=== PATIENT | female | born 2000 | race Asian ===

== ENCOUNTER 2019-05-13 21:47 | Emergency (ER) | payer OTHER ==
[~2019-05-13] VITALS: Ht 165.1 cm; Wt 52.7 kg
[2019-05-13 22:51] LABS: BASO % 0.4 % (0.0-1.0); EOS # 0.1 10^3/uL (0.0-0.5); EOS % 1.5 % (0.0-3.0); HEMATOCRIT 39.2 % (36.0-47.0); HEMOGLOBIN 12.9 g/dl (12.0-15.5); LYMPH # 2.7 10^3/uL (1.5-5.0); LYMPH % 50.6 % (24.0-44.0); MEAN CORPUSCULAR HEMOGLOBIN 29.7 pg (27.0-33.0); MEAN CORPUSCULAR HGB CONC 32.9 g/dl (32.0-36.5); MEAN CORPUSCULAR VOLUME 90.3 fl (80.0-96.0); MONO # 0.4 10^3/uL (0.0-0.8); MONO % 7.2 % (0.0-5.0); NEUTROPHILS # 2.2 10^3/uL (1.5-8.5); NEUTROPHILS % 40.3 % (36.0-66.0); PLATELET COUNT, AUTOMATED 208 10^3/uL (150-450); RED BLOOD COUNT 4.34 10^6/uL (4.00-5.40); WHITE BLOOD COUNT 5.4 10^3/uL (4.0-10.0)
[2019-05-14] MEDS ORDERED: BACT800T5 PO (00:02)
[2019-05-14] MEDS ORDERED: IBUP-1022 PO (00:02)
[2019-05-14 00:12] VITALS: BP 115/65
[2019-05-14] MEDS ORDERED: BACTRIM 160MG/800MG DS TAB PO ONE (00:15)
--- NOTE | 2019-05-14 00:38 | REPVR ---
PROCEDURE INFORMATION: Exam: US Pelvis Complete, Transabdominal Exam date and time: 05/13/2019 11:44 PM Clinical history: 18 years old, female; Pelvic pain; Additional Info: llq pain TECHNIQUE: Imaging protocol: Real-time transabdominal pelvic ultrasound with image documentation. Complete exam. COMPARISON: No relevant prior studies available. FINDINGS: Uterus/cervix: Uterus measures 8.1 x 3.8 x 4.4 cm. Endometrial stripe measures 10.8 mm in thickness. No uterine masses. Right adnexa: Right ovary 2.8 x 1.4 x 1.6 cm. Normal vascular flow the right ovary. No masses. Left adnexa: Left ovary measures 3.8 x 1.9 x 1.8 cm. Partially collapsed cyst in the left ovary measuring 1.3 x 0.7 x 1.1 cm. Normal vascular flow the left ovary. Free fluid: Trace fluid in the cul-de-sac with internal echoes. Bladder: Bladder is empty. IMPRESSION: 1. Unremarkable uterus and right ovary. 2. Partially collapsed cyst in the left ovary. No followup is necessary. Electronically signed by: Carlo Mckenna On 05/14/2019 00:37:56 AM
--- NOTE | 2019-05-14 01:30 | REP ---
Clinical: Left lower quadrant pain. Technique: Single supine view of the abdomen and pelvis. Findings: Bowel gas pattern is nonspecific and without obstruction or perforation. No organomegaly. No abnormal calcifications. Skeletal structures are intact. Impression: Normal abdominal radiograph. Electronically Signed by Alex Matthew MD 05/14/2019 01:22 A
== END 2019-05-14 00:18 | disposition home or self-care (01) ==
LOC: M ED 21:47
DX: N30.90 Cystitis, unspecified without hematuria (principal); R10.2 Pelvic and perineal pain; F17.200 Nicotine dependence, unspecified, uncomplicated

== ENCOUNTER 2019-06-27 15:17 | Emergency (ER) | payer OTHER ==
[~2019-06-27] VITALS: Ht 165.1 cm; Wt 50.0 kg
[~2019-06-27 15:17] MED LIST: BACT800T5 PO; IBUP-1022 PO
[2019-06-27] MEDS ORDERED: PREVTAB2 PO (15:22)
[2019-06-27] MEDS ORDERED: ABIL1TAB11 PO (15:22)
[2019-06-27 16:08] LABS: BASO % 0.4 % (0.0-1.0); EOS # 0.1 10^3/uL (0.0-0.5); EOS % 1.3 % (0.0-3.0); HEMATOCRIT 40.9 % (36.0-47.0); HEMOGLOBIN 13.3 g/dl (12.0-15.5); LYMPH # 2.2 10^3/uL (1.5-5.0); LYMPH % 45.9 % (24.0-44.0); MEAN CORPUSCULAR HEMOGLOBIN 29.4 pg (27.0-33.0); MEAN CORPUSCULAR HGB CONC 32.5 g/dl (32.0-36.5); MEAN CORPUSCULAR VOLUME 90.3 fl (80.0-96.0); MONO # 0.3 10^3/uL (0.0-0.8); MONO % 6.2 % (0.0-5.0); NEUTROPHILS # 2.2 10^3/uL (1.5-8.5); NEUTROPHILS % 46.2 % (36.0-66.0); PLATELET COUNT, AUTOMATED 232 10^3/uL (150-450); RED BLOOD COUNT 4.53 10^6/uL (4.00-5.40); WHITE BLOOD COUNT 4.7 10^3/uL (4.0-10.0)
[2019-06-27 17:02] LABS: ALBUMIN 4.1 GM/DL (3.2-5.2); ALT/SGPT 11 U/L (12-78); BILIRUBIN,DIRECT 0.1 MG/DL (0.0-0.2); BILIRUBIN,TOTAL 0.4 MG/DL (0.2-1.0); BLOOD UREA NITROGEN 13 MG/DL (7-18); CALCIUM LEVEL 8.8 MG/DL (8.5-10.1); CARBON DIOXIDE LEVEL 26 MEQ/L (21-32); CHLORIDE LEVEL 106 MEQ/L (98-107); CREATININE FOR GFR 0.69 MG/DL (0.55-1.30); GLUCOSE, FASTING 80 MG/DL (70-100); HCG, SERUM QUANTITATIVE < 1.0 MIU/ML; LIPASE 124 U/L (73-393); POTASSIUM SERUM 4.1 MEQ/L (3.5-5.1); SODIUM LEVEL 140 MEQ/L (136-145); TOTAL PROTEIN 7.2 GM/DL (6.4-8.2)
[2019-06-27] MEDS ORDERED: ONDANSETRON 4 MG ORAL DISINTEGRATING TAB (Q0162 PER 1MG) PO ONE (18:00)
[2019-06-27] MEDS ORDERED: KETOROLAC TROMETHAMINE 10 MG TAB PO ONE (18:00)
--- NOTE | 2019-06-27 19:01 | REPVR ---
PROCEDURE INFORMATION: Exam: US Pelvis Complete, Transabdominal and US Pelvis, Transvaginal Exam date and time: 06/27/2019 6:21 PM Clinical history: 18 years old, female; Pelvic pain; Additional info: Pelvic pain, bilat, L flank pain TECHNIQUE: Imaging protocol: Real-time transabdominal and transvaginal pelvic ultrasound (complete) with image documentation. Transvaginal imaging was used for better evaluation of the endometrium and adnexa. COMPARISON: US PELVIC NON-OB COMPLETE 05/13/2019 11:26 PM FINDINGS: Uterus/cervix: The uterus is retroverted, measuring approximately 6.9 x 4.3 x 4.4 cm. The endometrial stripe measures approximately 11 mm. Right adnexa: The right ovary measures 4.4 x 1.2 x 1.1 cm. Normal Doppler flow is present. An 8 mm follicle is noted. Left adnexa: The left ovary measures 3.0 x 1.2 x 1.2 cm. A 9 mm follicle is noted. Normal Doppler flow is present. Free fluid: A trace amount of free fluid is noted in the pelvic cul-de-sac. Bladder: Normal. IMPRESSION: No new or acute abnormality. Electronically signed by: Gus Johnson On 06/27/2019 19:00:50 PM
[2019-06-27 19:37] VITALS: BP 121/70
[2019-06-27] MEDS ORDERED: ONDA4TAB6 PO (19:58)
== END 2019-06-27 20:10 | disposition home or self-care (01) ==
LOC: M ED 15:17
DX: R10.32 Left lower quadrant pain (principal); R10.2 Pelvic and perineal pain; R11.0 Nausea; Z79.899 Other long term (current) drug therapy; Z79.3 Long term (current) use of hormonal contraceptives
CPT/HCPCS: 36415; 76830; 76856; 80048; 80076; 81001; 81002; 81025; 83690; 84702; 85025; 93976; 99283; G0463; Q0162

== ENCOUNTER → 2019-10-16 | Outpatient (REF) | payer OTHER ==
[~2019-10-16] MED LIST changes: +ABIL1TAB11 PO; +CLOB5CR TOP; +ONDA4TAB6 PO; +PHEN-500 PO; +PHEN-593; +PREVTAB2 PO; +PROAAER10 INH; +SULF1TAB93; +VENL37.598 PO
[2019-10-17 05:07] LABS: CHLAMYDIA DNA AMPLIFICATION NEGATIVE (NEGATIVE); GC DNA AMPLIFICATION NEGATIVE (NEGATIVE)
== END ==
LOC: M SFHCLERA 14:54
PROVIDERS: ATTEND Nurse Practitioner Family
DX: R30.0 Dysuria (principal)
CPT/HCPCS: 81002; 87088; 87186; 87661; G0463

== ENCOUNTER 2019-10-17 18:27 | Inpatient (IN) | payer OTHER ==
[~2019-10-17] VITALS: Ht 165.1 cm; Wt 48.0 kg
[~2019-10-17 18:27] MED LIST changes: -CLOB5CR TOP; -PHEN-500 PO; -PHEN-593; -PROAAER10 INH; -SULF1TAB93; -VENL37.598 PO
[2019-10-17] MEDS ORDERED: PHEN-593 (18:47)
[2019-10-17] MEDS ORDERED: SULF1TAB93 (18:47)
[2019-10-17 19:40] LABS: HEMOGLOBIN 13.9 g/dl (12.0-15.5); MEAN CORPUSCULAR HEMOGLOBIN 29.7 pg (27.0-33.0); MEAN CORPUSCULAR HGB CONC 33.9 g/dl (32.0-36.5); MEAN CORPUSCULAR VOLUME 87.6 fl (80.0-96.0); PLATELET COUNT, AUTOMATED 212 10^3/uL (150-450); RED BLOOD COUNT 4.68 10^6/uL (4.00-5.40); WHITE BLOOD COUNT 8.5 10^3/uL (4.0-10.0)
[2019-10-17 20:01] LABS: HCG, SERUM QUALITATIVE NEGATIVE (NEGATIVE)
[2019-10-17 20:09] LABS: ACETAMINOPHEN LEVEL < 2.0 UG/ML (10.0-30.0); ALBUMIN 4.4 GM/DL (3.2-5.2); ALT/SGPT 11 U/L (12-78); BILIRUBIN,DIRECT 0.2 MG/DL (0.0-0.2); BILIRUBIN,TOTAL 0.6 MG/DL (0.2-1.0); BLOOD UREA NITROGEN 12 MG/DL (7-18); CALCIUM LEVEL 9.3 MG/DL (8.5-10.1); CARBON DIOXIDE LEVEL 23 MEQ/L (21-32); CHLORIDE LEVEL 107 MEQ/L (98-107); CREATININE FOR GFR 0.85 MG/DL (0.55-1.30); ETHYL ALCOHOL (ETHANOL) < 0.003 % (0.000-0.010); GLUCOSE, FASTING 101 MG/DL (70-100); POTASSIUM SERUM 3.8 MEQ/L (3.5-5.1); SALICYLATE LEVEL < 1.7 MG/DL (5.0-30.0); SODIUM LEVEL 137 MEQ/L (136-145); TOTAL PROTEIN 7.6 GM/DL (6.4-8.2)
[2019-10-17 20:13] LABS: AMPHETAMINES LEVEL URINE NEGATIVE (NEGATIVE); BARBITURATES URINE NEGATIVE (NEGATIVE); BENZODIAZEPINES URINE NEGATIVE (NEGATIVE); CANNABINOIDS URINE NEGATIVE (NEGATIVE); COCAINE METABOLITE URINE NEGATIVE (NEGATIVE); METHADONE URINE NEGATIVE (NEGATIVE); OPIATES URINE NEGATIVE (NEGATIVE); PHENCYCLIDINE URINE NEGATIVE (NEGATIVE)
[2019-10-17] MEDS ORDERED: MOM 30ML SUSPENSION UDC PO PRN (21:00)
[2019-10-17] MEDS ORDERED: ACETAMINOPHEN TAB 650MG DOSE (2X325MG) PO PRN (21:00)
[2019-10-17] MEDS ORDERED: traZODone 50 MG TAB PO PRN (21:00)
[2019-10-17] MEDS ORDERED: MAALOX 30 ML SUSP *UDC PO PRN (21:00)
[2019-10-17] MEDS ORDERED: BACT800T5 PO (21:24)
[2019-10-17] MEDS ORDERED: PHEN-500 PO (21:24)
[2019-10-17] MEDS ORDERED: CLOB5CR TOP (21:25)
[2019-10-17] MEDS ORDERED: PROAAER10 INH (21:25)
[2019-10-17] MEDS ORDERED: ENTER DRUG NAME HERE (PATIENT'S OWN MED) PO SCH (21:30)
[2019-10-17] MEDS: BACTRIM 160MG/800MG DS TAB PO SCH (22:07)
[2019-10-17 22:30] VITALS: BP 140/80
[2019-10-18 06:27] VITALS: BP 104/52
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
[2019-10-18] MEDS ORDERED: PHENAZOPYRIDINE 100 MG TAB PO SCH (09:00)
[2019-10-18] MEDS ORDERED: ALBUTEROL 90 MCG/ACT 8GM HFA INHALER INH PRN (09:00)
[2019-10-18] MEDS: PHENAZOPYRIDINE 100 MG TAB PO SCH ×2 (09:00→20:41)
[2019-10-18] MEDS ORDERED: BACTRIM 160MG/800MG DS TAB PO SCH (09:00)
[2019-10-18] MEDS ORDERED: VENLAFAXINE **XR** 37.5 MG CAPSULE PO ONE (09:15)
[2019-10-18] MEDS: CLOBETASOL PROPIONATE EMOLLIENT 0.05% CR 60 GM TOP SCH ×2 (11:54→20:42)
[2019-10-18] MEDS: BACTRIM 160MG/800MG DS TAB PO SCH ×2 (11:55→20:41)
[2019-10-18] MEDS ORDERED: ONDANSETRON 4 MG ORAL DISINTEGRATING TAB (Q0162 PER 1MG) PO PRN (13:45)
--- NOTE | 2019-10-18 17:09 | HPEPDOC ---
[facility] Medical History & Physical Date of Admission Oct 18, 2019 Date of Service: Oct 18, 2019 Attending Physician: EVE STARR MD History and Physical CHIEF COMPLAINT: Admitted to inpatient mental health unit for suicide attempt HISTORY OF PRESENT ILLNESS: 19-year-old female with past medical history of bipolar depression is admitted to inpatient mental health unit after suicide attempt. Patient felt worsening depression because her left for 4 days due to work, she overdosed on her antidepressants. Patient has overdosed on medication in the past in a suicide attempt. She reports that she does not have the intention to kill herself. It was just a reaction of her depression. Patient currently feels well, has no medical complaints at this time. She denies any shortness of breath, chest pain, nausea, vomiting, abdominal pain or diarrhea. Her medical history is otherwise significant for asthma, takes as needed inhalers. 10 point review of system is negative except for above PAST MEDICAL HISTORY: 1. Bipolar Depression. 2. Asthma. PAST SURGICAL HISTORY: 1. None. SOCIAL HISTORY: Never smoker. Social use. Denies drug use FAMILY HISTORY: No family history of cancer, heart disease ALLERGIES: Please see below. HOME MEDICATIONS: Please see below. PHYSICAL EXAMINATION: VITAL SIGNS: Please see below. GENERAL: No distress HEENT: Normocephalic, atraumatic, moist mucous membranes NECK: Supple CARDIOVASCULAR EXAMINATION: S1, S2, no murmurs RESPIRATORY EXAMINATION: Clear to auscultation, no wheezing ABDOMINAL EXAMINATION: Soft, nontender, nondistended, positive bowel sounds EXTREMITIES: Range of motion intact SKIN: No rash NEUROLOGICAL EXAMINATION: Alert and oriented 3, no focal deficits PSYCHIATRIC EXAMINATION: Calm and cooperative LABORATORY DATA: See below. MICROBIOLOGY: Please see below. ASSESSMENT: 19-year-old female with past medical history of bipolar depression and asthma admitted to inpatient mental health unit after suicide attempt. . PLAN: 1. Suicide attempt. Management as per primary team 2. Asthma. Continue as needed albuterol Patient has no other active medical problems at this time, please reconsult as needed. Vital Signs Vital Signs Date Time Temp Pulse Resp B/P (MAP) Pulse Ox O2 Delivery O2 Flow Rate FiO2 10/18/19 06:27 99.0 77 16 104/52 (69) 10/17/19 22:30 100 Room Air Laboratory Data Labs 24H Laboratory Tests 2 10/17/19 18:55: Nucleated Red Blood Cells % (auto) 0.0, Anion Gap 7L, Calcium Level 9.3, Total B ilirubin 0.6, Direct Bilirubin 0.2, Aspartate Amino Transf (AST/SGOT) 12, Alanine Aminotransferase (ALT/SGPT) 11L, Alkaline Phosphatase 65, Total Protein 7.6, Albumin 4.4, Albumin/Globulin Ratio 1.38, Thyroid Stimulating Hormone (TSH) 2.040, Human Chorionic Gonadotropin, Qual NEGATIVE, Salicylates Level < 1.7L, Urine Opiates Screen NEGATIVE, Urine Methadone Screen NEGATIVE, Acetaminophen Level < 2.0L, Urine Barbiturates Screen NEGATIVE, Urine Phencyclidine Screen NEGATIVE, Urine Amphetamines Screen NEGATIVE, Urine Benzodiazepines Screen NEGATIVE, Urine Cocaine Metabolite Screen NEGATIVE, Urine Cannabinoids Screen NEGATIVE, Ethyl Alcohol Level < 0.003 CBC/BMP Laboratory Tests 10/17/19 18:55 Home Medications Scheduled Aripiprazole (Abilify) 5 Mg Tablet, 5 MG PO DAILY Clobetasol Propionate (Clobetasol Emollient 0.05% Crm) 60 Gm Cream..g., 1 DOSE TOP BID USES ON LOWER LEGS Phenazopyridine HCl (Phenazopyridine HCl) 100 Mg Tablet, 100 MG PO BID HAS NOT STARTED YET Sulfamethoxazole/Trimethoprim (Bactrim Ds Tablet) 1 Each Tablet, 1 TAB PO BID HAS ONLY TAKEN ONE DOSE Scheduled PRN Albuterol Sulfate (Proair Hfa) 8.5 Gm Hfa.aer.ad, 2 PUFF INH QID PRN for SHORTNESS OF BREATH Allergies Coded Allergies: No Known Allergies (Unverified , 05/13/19) A-FIB/CHADSVASC A-FIB History Current/History of A-Fib/PAF?: No EVE STARR MD Oct 18, 2019 17:08
[2019-10-18 17:48] VITALS: BP 112/69
[2019-10-19 06:17] VITALS: BP 121/61
[2019-10-19] MEDS ORDERED: VENLAFAXINE **XR** 37.5 MG CAPSULE PO SCH (09:00)
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
[2019-10-19] MEDS ORDERED: VENL37.598 PO (09:20)
[2019-10-19] MEDS: CLOBETASOL PROPIONATE EMOLLIENT 0.05% CR 60 GM TOP SCH (10:17)
[2019-10-19] MEDS: BACTRIM 160MG/800MG DS TAB PO SCH (10:18)
[2019-10-19] MEDS: PHENAZOPYRIDINE 100 MG TAB PO SCH (10:18)
== END 2019-10-19 12:50 | disposition home or self-care (01) | DRG 882 ==
LOC: M ED 18:27 → M ED INP 20:46 → M PSY 22:20
PROVIDERS: ADMIT Psychiatry & Neurology Addiction Medicine; ATTEND Psychiatry & Neurology Addiction Medicine
DX: F43.8 Other reactions to severe stress (principal); F43.20 Adjustment disorder, unspecified; F43.10 Post-traumatic stress disorder, unspecified; F60.3 Borderline personality disorder; Z62.811 Personal history of psychological abuse in childhood; Z79.899 Other long term (current) drug therapy

== ENCOUNTER → 2019-11-07 | Outpatient (REF) | payer OTHER ==
[~2019-11-07] MED LIST changes: +CLOB5CR TOP; +PHEN-500 PO; +PHEN-593; +PROAAER10 INH; +SULF1TAB93; +VENL37.598 PO
[2019-11-07 22:25] LABS: CHLAMYDIA DNA AMPLIFICATION NEGATIVE (NEGATIVE); GC DNA AMPLIFICATION NEGATIVE (NEGATIVE)
== END ==
LOC: M SFHCLERA 19:10
PROVIDERS: ATTEND Nurse Practitioner Family
DX: R30.0 Dysuria (principal)
CPT/HCPCS: 81002; 81025; 87086; 87661; G0463

== ENCOUNTER 2020-11-25 18:30 | Emergency (ER) | payer OTHER ==
[~2020-11-25] VITALS: Ht 165.1 cm; Wt 52.3 kg
[~2020-11-25 18:30] MED LIST changes: -PHEN-593; +PHEN1TAB73
[2020-11-25 19:50] LABS: HEMATOCRIT 42.3 % (36.0-47.0); HEMOGLOBIN 13.5 g/dl (12.0-15.5); MEAN CORPUSCULAR HEMOGLOBIN 28.8 pg (27.0-33.0); MEAN CORPUSCULAR HGB CONC 31.9 g/dl (32.0-36.5); MEAN CORPUSCULAR VOLUME 90.2 fl (80.0-96.0); PLATELET COUNT, AUTOMATED 239 10^3/uL (150-450); RED BLOOD COUNT 4.69 10^6/uL (4.00-5.40); WHITE BLOOD COUNT 6.5 10^3/uL (4.0-10.0)
[2020-11-25 20:15] LABS: HCG, SERUM QUALITATIVE NEGATIVE (NEGATIVE)
[2020-11-25 20:24] LABS: AMPHETAMINES LEVEL URINE NEGATIVE (NEGATIVE); BARBITURATES URINE NEGATIVE (NEGATIVE); BENZODIAZEPINES URINE NEGATIVE (NEGATIVE); CANNABINOIDS URINE POSITIVE (NEGATIVE); COCAINE METABOLITE URINE NEGATIVE (NEGATIVE); METHADONE URINE NEGATIVE (NEGATIVE); OPIATES URINE NEGATIVE (NEGATIVE); PHENCYCLIDINE URINE NEGATIVE (NEGATIVE)
[2020-11-25 20:25] LABS: ACETAMINOPHEN LEVEL < 2.0 UG/ML (10.0-30.0); ALBUMIN 4.5 GM/DL (3.2-5.2); ALT/SGPT 12 U/L (12-78); BILIRUBIN,DIRECT 0.2 MG/DL (0.0-0.2); BILIRUBIN,TOTAL 0.6 MG/DL (0.2-1.0); BLOOD UREA NITROGEN 12 MG/DL (7-18); CALCIUM LEVEL 9.3 MG/DL (8.5-10.1); CARBON DIOXIDE LEVEL 25 MEQ/L (21-32); CHLORIDE LEVEL 109 MEQ/L (98-107); CREATININE FOR GFR 0.75 MG/DL (0.55-1.30); ETHYL ALCOHOL (ETHANOL) < 0.003 % (0.000-0.010); GLOMERULAR FILTRATION RATE > 60.0 (>60); GLUCOSE, FASTING 93 MG/DL (70-100); POTASSIUM SERUM 3.5 MEQ/L (3.5-5.1); SALICYLATE LEVEL < 1.7 MG/DL (5.0-30.0); SODIUM LEVEL 140 MEQ/L (136-145); TOTAL PROTEIN 7.5 GM/DL (6.4-8.2)
[2020-11-26 00:24] VITALS: BP 132/77
== END 2020-11-26 00:31 | disposition home or self-care (01) ==
LOC: M ED 18:30
DX: F32.9 Major depressive disorder, single episode, unspecified (principal); F41.9 Anxiety disorder, unspecified; F43.10 Post-traumatic stress disorder, unspecified

== ENCOUNTER 2021-01-15 02:37 | Emergency (ER) | payer OTHER ==
[~2021-01-15] VITALS: Ht 165.1 cm; Wt 50.5 kg
[~2021-01-15 02:37] MED LIST changes: +BACTDSTA; -SULF1TAB93
[2021-01-15 02:38] VITALS: BP 132/84
[2021-01-15] MEDS ORDERED: VENL75CA47 (02:48)
[2021-01-15] MEDS ORDERED: VITA1CAP25 (02:48)
[2021-01-15] MEDS ORDERED: ARIP1TAB4 (02:48)
== END 2021-01-15 02:57 | disposition left against medical advice (07) ==
LOC: M ED 02:37
DX: Z53.21 Procedure and treatment not carried out due to patient leaving prior to being seen by health care provider (principal)

== ENCOUNTER 2021-07-30 14:32 | Emergency (ER) | payer OTHER, SELFPAY ==
[~2021-07-30 14:32] MED LIST changes: +ARIP1TAB4; +VENL75CA47; +VITA1CAP25
[2021-07-30 15:04] VITALS: BP 141/89
[2021-07-30] MEDS ORDERED: IBUPROFEN 800 MG TAB PO ONE (15:20)
== END 2021-07-30 18:05 | disposition home or self-care (01) ==
LOC: M ED 14:32 → EDBD 14:32 → M ED 18:05
DX: S16.1XXA Strain of muscle, fascia and tendon at neck level, initial encounter (principal); M79.642 Pain in left hand; M25.562 Pain in left knee; V43.52XA Car driver injured in collision with other type car in traffic accident, initial encounter; Y92.9 Unspecified place or not applicable; Y93.9 Activity, unspecified; Y99.9 Unspecified external cause status; F43.10 Post-traumatic stress disorder, unspecified; F41.9 Anxiety disorder, unspecified; F31.89 Other bipolar disorder; F12.10 Cannabis abuse, uncomplicated; Z79.899 Other long term (current) drug therapy

== ENCOUNTER 2022-02-17 13:55 | Inpatient (IN) | payer SELFPAY ==
[~2022-02-17] VITALS: Ht 175.3 cm; Wt 53.5 kg
[2022-02-17 14:46] LABS: HEMATOCRIT 40.6 % (36.0-47.0); HEMOGLOBIN 13.5 g/dl (12.0-15.5); MEAN CORPUSCULAR HEMOGLOBIN 29.5 pg (27.0-33.0); MEAN CORPUSCULAR HGB CONC 33.3 g/dl (32.0-36.5); MEAN CORPUSCULAR VOLUME 88.8 fl (80.0-96.0); PLATELET COUNT, AUTOMATED 212 10^3/uL (150-450); RED BLOOD COUNT 4.57 10^6/uL (4.00-5.40); WHITE BLOOD COUNT 6.3 10^3/uL (4.0-10.0)
[2022-02-17 15:11] LABS: RSV AMPLIFICATION NEGATIVE (NEGATIVE)
[2022-02-17 15:16] LABS: ALBUMIN 4.4 GM/DL (3.2-5.2); ALT/SGPT 24 U/L (12-78); BILIRUBIN,DIRECT 0.3 MG/DL (0.0-0.2); BILIRUBIN,TOTAL 0.9 MG/DL (0.2-1.0); BLOOD UREA NITROGEN 10 MG/DL (7-18); CALCIUM LEVEL 9.2 MG/DL (8.5-10.1); CARBON DIOXIDE LEVEL 23 MEQ/L (21-32); CHLORIDE LEVEL 107 MEQ/L (98-107); ETHYL ALCOHOL (ETHANOL) < 0.003 % (0.000-0.010); GLOMERULAR FILTRATION RATE > 60.0 (>60); GLUCOSE, FASTING 94 MG/DL (70-100); POTASSIUM SERUM 3.9 MEQ/L (3.5-5.1); SALICYLATE LEVEL < 1.7 MG/DL (5.0-30.0); SODIUM LEVEL 138 MEQ/L (136-145); TOTAL PROTEIN 7.6 GM/DL (6.4-8.2)
[2022-02-17 16:19] LABS: HCG, SERUM QUALITATIVE NEGATIVE (NEGATIVE)
[2022-02-17] MEDS ORDERED: HOME MED LIST COMPLETE! XX SCH (17:00)
[2022-02-17 17:14] LABS: AMPHETAMINES LEVEL URINE NEGATIVE (NEGATIVE); BARBITURATES URINE NEGATIVE (NEGATIVE); BENZODIAZEPINES URINE NEGATIVE (NEGATIVE); CANNABINOIDS URINE POSITIVE (NEGATIVE); COCAINE METABOLITE URINE NEGATIVE (NEGATIVE); METHADONE URINE NEGATIVE (NEGATIVE); OPIATES URINE NEGATIVE (NEGATIVE); PHENCYCLIDINE URINE NEGATIVE (NEGATIVE)
[2022-02-17 18:10] LABS: ACETAMINOPHEN LEVEL < 2.0 UG/ML (10.0-30.0)
[2022-02-17] MEDS ORDERED: OLANZapine ORAL DISINTEGRATING TAB 5MG PO PRN (22:05)
[2022-02-17] MEDS ORDERED: MOM 30ML SUSPENSION UDC PO PRN (22:05)
[2022-02-17] MEDS ORDERED: ACETAMINOPHEN TAB 650MG DOSE (2X325MG) PO PRN (22:05)
[2022-02-17] MEDS ORDERED: MAALOX 30 ML SUSP *UDC PO PRN (22:05)
[2022-02-17 22:34] VITALS: BP 128/74
[2022-02-17] MEDS: traZODone 50 MG TAB PO PRN (23:38)
[2022-02-18 18:25] VITALS: BP 120/80
[2022-02-18] MEDS: traZODone 50 MG TAB PO PRN (21:00)
[2022-02-19 06:39] VITALS: BP 118/59
[2022-02-19] MEDS ORDERED: VENLAFAXINE **XR** 37.5 MG CAPSULE PO SCH (09:40)
[2022-02-19] MEDS ORDERED: busPIRone 5 MG TAB PO SCH (09:40)
[2022-02-19] MEDS ORDERED: BUSP5TA PO (10:03)
[2022-02-19] MEDS ORDERED: VENL37.598 PO (10:03)
[2022-02-19] MEDS ORDERED: TRAZ-252 PO (10:03)
== END 2022-02-19 12:22 | disposition home or self-care (01) | DRG 756 ==
LOC: M ED 13:55 → M ED INP 22:05 → M PSY 22:58
PROVIDERS: ADMIT Psychiatry & Neurology Psychiatry; ATTEND Student in an Organized Health Care Education/Training Program
DX: F41.1 Generalized anxiety disorder (principal); F60.3 Borderline personality disorder; Z81.8 Family history of other mental and behavioral disorders; Z62.810 Personal history of physical and sexual abuse in childhood; Z62.811 Personal history of psychological abuse in childhood; Z91.51 Personal history of suicidal behavior; Z63.5 Disruption of family by separation and divorce; J45.909 Unspecified asthma, uncomplicated

== ENCOUNTER 2022-04-27 10:54 | Inpatient (IN) | payer OTHER, SELFPAY ==
[~2022-04-27] VITALS: Ht 165.1 cm; Wt 52.2 kg
[~2022-04-27 10:54] MED LIST changes: +BUSP5TA PO; +TRAZ-252 PO
[2022-04-27 11:30] LABS: HEMATOCRIT 42.2 % (36.0-47.0); HEMOGLOBIN 13.9 g/dl (12.0-15.5); MEAN CORPUSCULAR HEMOGLOBIN 29.3 pg (27.0-33.0); MEAN CORPUSCULAR HGB CONC 32.9 g/dl (32.0-36.5); PLATELET COUNT, AUTOMATED 226 10^3/uL (150-450); RED BLOOD COUNT 4.74 10^6/uL (4.00-5.40); WHITE BLOOD COUNT 4.7 10^3/uL (4.0-10.0)
[2022-04-27 12:05] LABS: RSV AMPLIFICATION NEGATIVE (NEGATIVE)
[2022-04-27 12:13] LABS: HCG, SERUM QUALITATIVE NEGATIVE (NEGATIVE)
[2022-04-27] MEDS ORDERED: HOME MED LIST COMPLETE! XX SCH (12:35)
[2022-04-27 12:47] LABS: ACETAMINOPHEN LEVEL < 2.0 UG/ML (10.0-30.0); ALBUMIN 4.4 GM/DL (3.2-5.2); ALT/SGPT 14 U/L (12-78); BILIRUBIN,DIRECT 0.2 MG/DL (0.0-0.2); BILIRUBIN,TOTAL 0.8 MG/DL (0.2-1.0); BLOOD UREA NITROGEN 15 MG/DL (7-18); CALCIUM LEVEL 9.3 MG/DL (8.5-10.1); CARBON DIOXIDE LEVEL 24 MEQ/L (21-32); CHLORIDE LEVEL 106 MEQ/L (98-107); CREATININE FOR GFR 0.87 MG/DL (0.55-1.30); ETHYL ALCOHOL (ETHANOL) 0.005 % (0.000-0.010); GLOMERULAR FILTRATION RATE > 60.0 (>60); GLUCOSE, FASTING 147 MG/DL (70-100); POTASSIUM SERUM 3.7 MEQ/L (3.5-5.1); SALICYLATE LEVEL < 1.7 MG/DL (5.0-30.0); SODIUM LEVEL 137 MEQ/L (136-145); TOTAL PROTEIN 7.7 GM/DL (6.4-8.2)
[2022-04-27 19:47] LABS: AMPHETAMINES LEVEL URINE NEGATIVE (NEGATIVE); BARBITURATES URINE NEGATIVE (NEGATIVE); BENZODIAZEPINES URINE NEGATIVE (NEGATIVE); CANNABINOIDS URINE POSITIVE (NEGATIVE); COCAINE METABOLITE URINE NEGATIVE (NEGATIVE); METHADONE URINE NEGATIVE (NEGATIVE); OPIATES URINE NEGATIVE (NEGATIVE); PHENCYCLIDINE URINE NEGATIVE (NEGATIVE)
[2022-04-29] MEDS ORDERED: RAMELTEON 8 MG TAB (ROZEREM) PO ONE (20:30)
[2022-04-30] MEDS ORDERED: MOM 30ML SUSPENSION UDC PO PRN (11:30)
[2022-04-30] MEDS ORDERED: IBUPROFEN 400MG TAB PO PRN (11:30)
[2022-04-30] MEDS ORDERED: MAALOX 30 ML SUSP *UDC PO PRN (11:30)
[2022-04-30 12:42] LABS: RSV AMPLIFICATION NEGATIVE (NEGATIVE)
[2022-04-30 17:00] VITALS: BP 119/69
[2022-04-30] MEDS: traZODone 50 MG TAB PO PRN (20:46)
[2022-04-30] MEDS: busPIRone 10 MG TAB PO SCH (21:00)
[2022-05-01 07:12] VITALS: BP 104/58
[2022-05-01] MEDS: busPIRone 10 MG TAB PO SCH ×2 (08:57→20:34)
[2022-05-01] MEDS: NICOTINE 21MG/24HR 1 EA TRANSDERMAL TD SCH (08:57)
[2022-05-01] MEDS: FLUoxetine 20MG CAP PO SCH (08:57)
[2022-05-01] MEDS ORDERED: ALBUTEROL SULFATE 2.5 MG/0.5 ML INH NEB SOLN INH PRN (11:00)
[2022-05-01 18:32] VITALS: BP 113/69
[2022-05-01] MEDS: traZODone 50 MG TAB PO PRN (20:34)
[2022-05-02 06:37] VITALS: BP 110/59
[2022-05-02] MEDS: busPIRone 10 MG TAB PO SCH ×2 (08:17→20:19)
[2022-05-02] MEDS: FLUoxetine 20MG CAP PO SCH (08:17)
[2022-05-02] MEDS: NICOTINE 21MG/24HR 1 EA TRANSDERMAL TD SCH (08:18)
[2022-05-02 17:37] VITALS: BP 116/79
[2022-05-02] MEDS: traZODone 100 MG TAB PO PRN (20:19)
[2022-05-03 07:51] VITALS: BP 130/63
[2022-05-03] MEDS: NICOTINE 21MG/24HR 1 EA TRANSDERMAL TD SCH (08:17)
[2022-05-03] MEDS: FLUoxetine 20MG CAP PO SCH (08:18)
[2022-05-03] MEDS: busPIRone 10 MG TAB PO SCH ×2 (08:18→21:09)
[2022-05-03 16:10] VITALS: BP 122/68
[2022-05-03] MEDS: traZODone 100 MG TAB PO PRN (21:09)
[2022-05-04 06:36] VITALS: BP 109/59
[2022-05-04] MEDS: NICOTINE 21MG/24HR 1 EA TRANSDERMAL TD SCH (09:00)
[2022-05-04] MEDS: busPIRone 10 MG TAB PO SCH ×2 (09:08→21:15)
[2022-05-04] MEDS: FLUoxetine 20MG CAP PO SCH (09:08)
[2022-05-04] MEDS ORDERED: FLUO20CA22 PO (11:36)
[2022-05-04] MEDS ORDERED: BUSP10TA PO (11:36)
[2022-05-04] MEDS ORDERED: TRAZ-257 PO (11:36)
[2022-05-04 16:24] VITALS: BP 100/56
[2022-05-04] MEDS: traZODone 100 MG TAB PO PRN (22:19)
[2022-05-05 06:33] VITALS: BP 131/57
[2022-05-05] MEDS: NICOTINE 21MG/24HR 1 EA TRANSDERMAL TD SCH (08:13)
[2022-05-05] MEDS: busPIRone 10 MG TAB PO SCH (08:14)
[2022-05-05] MEDS: FLUoxetine 20MG CAP PO SCH (08:14)
== END 2022-05-05 10:56 | disposition home or self-care (01) | DRG 754 ==
LOC: M ED 10:54 → M ED INP 04-30 11:30 → M PSY 04-30 14:45
PROVIDERS: ADMIT Psychiatry & Neurology Psychiatry; ATTEND Psychiatry & Neurology Psychiatry
DX: F43.21 Adjustment disorder with depressed mood (principal); F41.1 Generalized anxiety disorder; F60.3 Borderline personality disorder; J45.909 Unspecified asthma, uncomplicated; G47.00 Insomnia, unspecified; R45.851 Suicidal ideations; Z20.822 Contact with and (suspected) exposure to COVID-19; Z81.8 Family history of other mental and behavioral disorders; R82.998 Other abnormal findings in urine